=== PATIENT | female | born 1970 | race Caucasian/White ===

== ENCOUNTER 2017-04-17 18:16 | Emergency (ER) | payer OTHER ==
[2017-04-17 21:21] LABS: ADD MAN DIFF? NO
[2017-04-17 21:22] LABS: ABNORMAL IP MESSAGE 1; BASOPHILS % 0.2 % (0.0-2.0); EOSINOPHILS # 0.2 10^3/ul (0.0-0.5); EOSINOPHILS % 2.2 % (0.0-7.0); HEMATOCRIT 35.7 % (37.0-47.0); HEMOGLOBIN 10.3 g/dl (12.0-16.0); LYMPHOCYTES # 1.3 10^3/ul (0.8-2.9); LYMPHOCYTES % 12.6 % (15.0-51.0); MEAN CORPUSCULAR HGB CONC 28.9 g/dl (32.0-37.0); MEAN PLATELET VOLUME 10.4 fl (7.4-10.4); MONOCYTE # 0.5 10^3/ul (0.3-0.9); MONOCYTES % 4.6 % (0.0-11.0); NEUTROPHILS % 80.1 % (39.0-77.0); PLATELET COUNT 264 10^3/UL (140-415); RED CELL DISTRIBUTION WIDTH 16.4 % (11.5-14.5)
[2017-04-17 21:42] LABS: POSITIVE DIFF @See below
[2017-04-17 21:43] LABS: ALANINE AMINOTRANSFERASE 27 IU/L (13-69); ALBUMIN/GLOBULIN RATIO 1.02; ALKALINE PHOSPHATASE 96 IU/L (42-121); ANION GAP 13 (8-16); ASPARTATE AMINO TRANSFERASE 31 IU/L (15-46); BLOOD UREA NITROGEN 8 mg/dl (7-20); CALCIUM 9.1 mg/dl (8.4-10.2); CARBON DIOXIDE 26 mmol/L (21-31); CHLORIDE 105 mmol/L (97-110); CREATINE KINASE 156 IU/L (23-200); CREATININE 0.72 mg/dl (0.44-1.00); GLUCOSE 79 mg/dl (70-220); INR 0.95; PROTIME 12.8 Sec (11.9-14.9); SODIUM 141 mmol/L (135-144); TOTAL PROTEIN 7.9 g/dl (6.1-8.1)
[2017-04-17 21:44] LABS: PARTIAL THROMBOPLASTIN TIME 26.6 Sec (25.0-35.0)
[2017-04-17 21:52] LABS: CK INDEX 0.3; CK-MB 0.54 ng/ml (0.0-2.4)
[2017-04-17 21:57] LABS: B-TYPE NATRIURETIC PEPTIDE 183 PG/ML (0-125); TROPONIN-I < 0.012 ng/ml (0.00-0.12)
[2017-04-17] MEDS: HYDROmorphONE 1 MG/ML SYG IV (22:26)
[2017-04-17] MEDS: ONDANSETRON 4 MG INJ IV (22:26)
[2017-04-17] MEDS: FUROSEMIDE 40 MG INJ IV (22:37)
== END 2017-04-17 23:40 | disposition home or self-care (01) ==
LOC: E/R 18:16
DX: R60.0 Localized edema (principal); E66.01 Morbid (severe) obesity due to excess calories; F17.220 Nicotine dependence, chewing tobacco, uncomplicated; R11.10 Vomiting, unspecified
CPT/HCPCS: 80053; 82550; 82553; 83880; 84484; 85025; 85610; 85730; 93005; 93970; 96374; 96375; 99284-25

== ENCOUNTER 2018-10-26 21:56 | Emergency (ER) | payer OTHER ==
[2018-10-27] MEDS: OXYCODONE/ACETAMINOPHEN (5/325) TAB PO (01:13)
[2018-10-27] MEDS: FUROSEMIDE 20 MG TAB PO (01:14)
== END 2018-10-27 02:11 | disposition home or self-care (01) ==
LOC: E/R 21:56
DX: R60.0 Localized edema (principal); G89.4 Chronic pain syndrome; E66.09 Other obesity due to excess calories; Z76.0 Encounter for issue of repeat prescription; Z68.45 Body mass index [BMI] 70 or greater, adult
CPT/HCPCS: 81025; 99283